=== PATIENT | male | born 1955 | race Caucasian/White ===

== ENCOUNTER 2019-01-25 10:27 | Emergency (ER) | payer MEDICAID ==
[2019-01-25 13:20] LABS: ADD UMIC NO; UR ASCORBIC ACID NEGATIVE (NEGATIVE); UR BILIRUBIN (Dip) NEGATIVE (NEGATIVE); UR BLOOD (Dip) NEGATIVE (NEGATIVE); UR CLARITY CLEAR (CLEAR); UR COLOR YELLOW (YELLOW); UR GLUCOSE (Dip) NEGATIVE (NEGATIVE); UR KETONES (Dip) 1+ mg/dL (NEGATIVE); UR LEUKOCYTE ESTERASE (Dip) NEGATIVE Leu/ul (NEGATIVE); UR NITRITE (Dip) NEGATIVE (NEGATIVE); UR SPECIFIC GRAVITY (Dip) 1.009 (1.003-1.030); UR TOTAL PROTEIN (Dip) NEGATIVE (NEGATIVE); UR UROBILINOGEN (Dip) NEGATIVE (NEGATIVE)
[2019-01-25] MEDS: KETOROLAC 15 MG INJ IM (14:14)
== END 2019-01-25 14:30 | disposition home or self-care (01) ==
LOC: E/R 10:27
DX: M54.5 Low back pain (principal); R10.32 Left lower quadrant pain
CPT/HCPCS: 81003; 96372; 99284-25